=== PATIENT | male | born 1950 | race Caucasian/White ===

== ENCOUNTER 2018-02-07 11:56 | Day surgery (SDC) | payer OTHER ==
[2018-02-07] MEDS ORDERED: FENTANYL CITR 100 MCG/2 ML ONE ×2 (12:30→13:11)
[2018-02-07] MEDS ORDERED: KETOROLAC 30 MG/ML INJ ONE (12:30)
[2018-02-07] MEDS ORDERED: Ringers Lactate 1,000 ML IV ONE (12:31)
[2018-02-07 12:33] LABS: Absolute Lymphocytes (CBC) 0.7 K/uL (0.7-4.9); Absolute Monocytes 0.9 K/uL (0.1-1.3); Absolute Neutrophil 5.2 K/uL (1.8-8.0); Basophils % 0.3 % (0-1.3); Eosinophils % 0.6 % (0-4.4); Hematocrit 43.4 % (39.6-49.0); Lymphocytes % 10.4 % (15.3-44.8); MCH 29.5 pg (27.0-35.0); MCV 84.7 fL (80-100); MPV 8.3 fL (7.6-11.3); Monocytes % 12.6 % (3.3-12.3); RBC Red Blood Cell Count 5.12 M/uL (4.33-5.43)
[2018-02-07 12:36] LABS: Protime INR 1.16
[2018-02-07] MEDS ORDERED: METOCLOPRAMIDE 10 MG/2mL INJ ONE (12:37)
[2018-02-07] MEDS ORDERED: NA CIT/CITRIC AC 30 ML ORAL UDC ONE (12:37)
--- NOTE | 2018-02-07 12:45 | EKG ---
Test Date: 2018-02-07 Test Time: 12:10:53 Auto Tech: GUZMAN MEASUREMENT RESULTS: Intervals: Rate: 109 DE: 152 QRSD: 82 QT: 332 QTc: 447 [place]: P: 42 DE: 152 QRS: 43 T: 20 INTERPRETIVE STATEMENTS: Sinus tachycardia with occasional premature ventricular complexes Nonspecific ST abnormality Abnormal ECG No previous ECG available for comparison Electronically Signed On 02-07-18 12:45:33 CDT by Tony Bravo
[2018-02-07 12:50] LABS: Phosphorus 1.1 mg/dL (2.5-4.9); Potassium 3.3 mmol/L (3.5-5.1); Uric Acid 4.8 mg/dL (3.5-7.2)
[2018-02-07] MEDS ORDERED: MIDAZOLAM HCL 2 MG/2 ML INJ ONE (13:10)
[2018-02-07] MEDS ORDERED: LIDOCAINE 2% MPF 5 ML VIAL ONE (13:11)
[2018-02-07] MEDS ORDERED: PROPOFOL 200 MG/20 ML VIAL IV ONE (13:11)
[2018-02-07] MEDS: GENTAMICIN 100 MG/100 ML BAG 100 MG/100 ML BAG IV ONE ×2 (14:00→14:05)
[2018-02-07] MEDS: Ringers Lactate 1,000 ML IV ONE ×2 (14:22→14:25)
[2018-02-07] MEDS ORDERED: Mastisol Adhesive Liq ONE (14:26)
--- NOTE | 2018-02-07 15:10 | RAD REPORT ---
EXAM DESCRIPTION: RAD - Urethrocystogrphy Retrograde - 02/07/2018 3:01 pm CLINICAL HISTORY: KIDNEY STONE COMPARISON: No comparisons FINDINGS: Fluoroscopic imaging of the left abdomen was submitted as part of a retrograde pyelogram a nd stent placement procedure. Details of the procedure are not available. Total fluoro time: 34 seconds.
[2018-02-07] MEDS ORDERED: HYDROCODONE/APAP 7.5/325 MG TAB ONE (15:42)
== END 2018-02-07 16:20 | disposition home or self-care (01) ==
LOC: OR 11:56
PROVIDERS: ATTEND Urology
PROC: 0T768DZ Dilation of Right Ureter with Intraluminal Device, Via Natural or Artificial Opening Endoscopic (ICD-10-PCS; principal; 2018-02-07 12:45)
DX: N20.2 Calculus of kidney with calculus of ureter (principal); F17.200 Nicotine dependence, unspecified, uncomplicated
CPT/HCPCS: 36415; 51610; 74450; 80048; 84100; 84550; 85025; 85610; 85730; 93005; G0103; J1580; J2250; J2765; J3010; Q9967

== ENCOUNTER 2018-02-19 07:35 | Day surgery (SDC) | payer OTHER ==
[2018-02-18 12:13] LABS: Absolute Lymphocytes (CBC) 1.3 K/uL (0.7-4.9); Absolute Monocytes 0.5 K/uL (0.1-1.3); Absolute Neutrophil 5.7 K/uL (1.8-8.0); Basophils % 0.3 % (0-1.3); Hematocrit 46.6 % (39.6-49.0); MCH 29.5 pg (27.0-35.0); MCV 84.2 fL (80-100); MPV 7.7 fL (7.6-11.3); RBC Red Blood Cell Count 5.54 M/uL (4.33-5.43)
[2018-02-18 12:16] LABS: Urine Appearance CLOUDY; Urine Bilirubin NEGATIVE (NEG); Urine Blood 3+ (NEG); Urine Color YELLOW; Urine Glucose 3+ (NEG); Urine Protein 2+ (NEG); Urine Specific Gravity >=1.030 (1.005-1.030); Urine Urobilinogen 0.2 mg/dL (0.2-1.0); Urine pH 5.5 (5.0-7.0)
[2018-02-18 12:16] LABS: Potassium 4.5 mmol/L (3.5-5.1)
[2018-02-18 12:20] LABS: Protime INR 0.95
[2018-02-18 12:31] LABS: Urine Microscopic Reflex ORDER UMIC
[2018-02-18 12:32] LABS: Urine Bacteria <20 /HPF (NONE SEEN); Urine Culture Reflex Order NOT NEEDED; Urine RBC >50 /HPF (NONE SEEN)
[2018-02-19] MEDS ORDERED: LABETALOL HCL 100 MG/20 ML ONE (07:52)
[2018-02-19] MEDS ORDERED: Ringers Lactate 1,000 ML IV ONE (08:05)
[2018-02-19] MEDS ORDERED: GENTAMICIN 100 MG/100 ML BAG 100 MG/100 ML BAG IV ONE (08:06)
[2018-02-19] MEDS ORDERED: MIDAZOLAM HCL 2 MG/2 ML INJ ONE (08:25)
[2018-02-19] MEDS ORDERED: PROPOFOL 200 MG/20 ML VIAL IV ONE (08:25)
[2018-02-19] MEDS ORDERED: LIDOCAINE 2% MPF 5 ML VIAL ONE (08:26)
[2018-02-19] MEDS ORDERED: FENTANYL CITR 100 MCG/2 ML ONE (08:27)
[2018-02-19] MEDS ORDERED: ONDANSETRON HCL 40 MG/20 ML VIAL ONE (08:27)
[2018-02-19] MEDS ORDERED: EPHEDRINE SULF 50 MG/10 ML SYR ONE (09:05)
[2018-02-19] MEDS ORDERED: D5 0.9 NS 1,000 ML IV ONE (09:07)
--- NOTE | 2018-02-19 10:11 | RAD REPORT ---
EXAM DESCRIPTION: RAD - Abdomen 1 View (KUB) - 02/19/2018 8:16 am CLINICAL HISTORY: ICD N 20.0 FINDINGS: The bowel gas pattern is unremarkable. A left ureteral stent is in place. An 8 millimeter calculus is present within the lower pole of the left kidney
== END 2018-02-19 11:15 | disposition home or self-care (01) ==
LOC: OR 07:35
PROVIDERS: ATTEND Urology
PROC: BT1FYZZ Fluoroscopy of Left Kidney, Ureter and Bladder using Other Contrast (ICD-10-PCS; 2018-02-19)
PROC: 0TF4XZZ Fragmentation in Left Kidney Pelvis, External Approach (ICD-10-PCS; principal; 2018-02-19 09:45)
DX: N20.0 Calculus of kidney (principal); Q62.39 Other obstructive defects of renal pelvis and ureter
CPT/HCPCS: 36415; 50590; 52005; 74018; 80048; 82330; 84075; 85025; 85610; 85730; J1580; J2250; J2405; J3010; 81003; 81015